=== PATIENT | female | born 1990 | race Caucasian/White ===

== ENCOUNTER 2020-12-21 15:25 | Emergency (ER) | payer OTHER ==
[~2020-12-21] VITALS: Ht 175.3 cm; Wt 123.9 kg
[2020-12-21] MEDS ORDERED: GABAPENTIN600 M1 PO (15:54)
[2020-12-21] MEDS ORDERED: [UNRECOGNIZED DRUG - OTHER] SUBQ (15:55)
[2020-12-21] MEDS ORDERED: DILANTIN100 MG PO (15:56)
[2020-12-21] MEDS ORDERED: CYMBALTA60 MG PO (15:56)
[2020-12-21] MEDS ORDERED: [UNRECOGNIZED DRUG - OTHER] SUBQ (15:56)
[2020-12-21] MEDS ORDERED: SUPER THERAVIT1 EACH PO (15:57)
[2020-12-21] MEDS ORDERED: VITAMIN D3 PO (15:57)
[2020-12-21] MEDS ORDERED: FLOVENT HFA 4444 MCG INH (15:58)
[2020-12-21] MEDS ORDERED: LAMICTAL XR200 MG PO (15:58)
[2020-12-21] MEDS ORDERED: ASA81BEC PO (15:58)
[2020-12-21] MEDS ORDERED: FLEXERIL PO (15:59)
[2020-12-21] MEDS ORDERED: [UNRECOGNIZED DRUG - OTHER] PO (16:00)
[2020-12-21] MEDS ORDERED: PHENERGAN 25 MG25 MG PO (16:00)
[2020-12-21] MEDS ORDERED: DESYREL150 MG PO (16:01)
[2020-12-21] MEDS ORDERED: PROAIR HFA8.5 GM INH (16:01)
[2020-12-21] MEDS ORDERED: LIDODERM1 EACH TOP (16:02)
[2020-12-21] MEDS ORDERED: ATIVAN1 M1 PO (16:02)
[2020-12-21] MEDS ORDERED: EMGALITY S120 MG/1 M SUBQ (16:03)
[2020-12-21] MEDS ORDERED: NUCYNTA ER150 MG PO (16:04)
[2020-12-21] MEDS ORDERED: CHLORZOXAZONE500 MG PO (16:04)
[2020-12-21] MEDS ORDERED: NUCYNTA50 MG PO (16:04)
[2020-12-21] MEDS ORDERED: GAMMAGARD S-D 55 GM IV (16:05)
[2020-12-21] MEDS ORDERED: NAYZILAM5 MG/0.1 M NASAL (16:06)
[2020-12-21] MEDS ORDERED: PREDNISONE 20 M20 MG PO (17:24)
[2020-12-21] MEDS ORDERED: ALBUTEROL2.5 MG/31 INH (17:30)
[2020-12-21] MEDS ORDERED: IPRAT-ALBUT 0.5-3 ML INH (17:30)
[2020-12-21] MEDS ORDERED: ADVAIR 250-501 EACH INH (17:30)
[2020-12-21 17:44] VITALS: BP 140/90
== END 2020-12-21 17:45 | disposition home or self-care (01) ==
LOC: M.ERS 15:25
DX: J45.909 Unspecified asthma, uncomplicated (principal); G40.909 Epilepsy, unspecified, not intractable, without status epilepticus; Z76.0 Encounter for issue of repeat prescription; Z79.82 Long term (current) use of aspirin; Z79.51 Long term (current) use of inhaled steroids; Z79.891 Long term (current) use of opiate analgesic; Z79.1 Long term (current) use of non-steroidal anti-inflammatories (NSAID); Z88.8 Allergy status to other drugs, medicaments and biological substances